=== PATIENT | female | born 1985 | race American Indian/Alaskan Native ===

== ENCOUNTER 2017-05-27 22:28 | Emergency (ER) | payer OTHER ==
[2017-05-27 23:26] VITALS: BP 135/99
--- NOTE | 2017-05-28 03:35 | Emergency Department Report ---
ED Back Pain/Injury HPI - General Chief Complaint: Back Pain/Injury Stated Complaint: BACK PAIN Time Seen by Provider: 05/28/17 02:19 Source: patient Mode of arrival: Ambulatory Limitations: No Limitations - History of Present Illness Initial Comments: This is a 32 y.o. female presents with chronic back pain. Patient states she is out of percocet pain medication. She moved here from [place] and doesn't have an I.D. to see pain management. Reports taking percocet 10 mg to control back pain from cyst. States she has been out of medication since the . Complaint: back pain -: year(s) Similar Symptoms Previously: Yes (chronic back pain) Place: home Radiation: none Severity: moderate Severity scale (0 -10): 7 Quality: sharp, aching Consistency: intermittent Improves With: medication (muscle relaxers and percocet) Worsens With: movement Context: unknown Associated Symptoms: denies other symptoms - Related Data Previous Rx's Medication Instructions Recorded Last Taken Type traMADol [Ultram 50 MG tab] 50 mg PO Q6HR PRN #10 tablet 05/28/17 Unknown Rx Allergies Allergy/AdvReac Type Severity Reaction Status Date / Time No Known Allergies Allergy Unverified 05/28/17 03:36 ED Review of Systems ROS: Stated complaint: BACK PAIN Other details as noted in HPI Constitutional: denies: chills, fever Respiratory: denies: cough, shortness of breath, wheezing Cardiovascular: denies: chest pain, palpitations Gastrointestinal: denies: abdominal pain, nausea, diarrhea Musculoskeletal: back pain (low back pain) Neurological: denies: headache, weakness, paresthesias ED Past Medical Hx - Past Medical History spinal cyst ED Back Pain Physical Exam - Exam General: Vital signs noted. No distress. Alert and acting appropriately. Back/Abdomen: Yes Perilumbar Tenderness (bilateral tenderness on palpation, no swelling, or erythma), No Abdominal Tenderness, No Perithoracic Tenderness, No Sacroiliac Tenderness, No Flank Tenderness, No Straight Leg Raise Pain Neuro: Yes Normal Sensation, Yes Normal DTR's, Yes Normal Gait, No Motor Weakness ED Course Vital Signs 05/27/17 23:21 Temperature 97.7 F Pulse Rate 98 H Respiratory 17 Rate Blood Pressure 135/99 O2 Sat by Pulse 100 Oximetry ED Medical Decision Making - Medical Decision Making This is a 32 y.o. female presents with chronic low back pain. Recently moved here from [place]. States she doesn't have I.D. and primary care will not see her to refer to pain management doctor. States need refill on percocet 10 mg, which is what she was taking in [place] to control pain. Given [place] 5/325 mg po once in ER. Referral to [facility] to get established and referral to pain management. Discharged home with tramadol 50 mg po Q6H, #10. Critical care attestation.: If time is entered above; I have spent that time in minutes in the direct care of this critically ill patient, excluding procedure time. ED Disposition Clinical Impression: Chronic low back pain Qualifiers: Back pain laterality: bilateral Sciatica presence: without sciatica Qualified Code(s): M54.5 - Low back pain; G89.29 - Other chronic pain; G89.29 - Other chronic pain Disposition: TO HOME OR SELFCARE Is pt being admited?: No Does the pt Need Aspirin: No Condition: Stable Instructions: Arthralgia (ED), Chronic Back Pain (ED) Additional Instructions: Follow up with [facility] for pain management. Prescriptions: traMADol [Ultram 50 MG tab] 50 mg PO Q6HR PRN #10 tablet PRN Reason: Pain Referrals: [facility] [Outside] - 3-5 Days [facility] [Outside] - 3-5 Days [facility] [Outside] - 3-5 Days Time of Disposition: 04:36 Print Language: YI
[2017-05-28] MEDS ORDERED: NORCO 5/325 PO ONE (03:36)
== END 2017-05-28 04:48 | disposition home or self-care (01) ==
LOC: ED 22:28
DX: M54.5 Low back pain (principal); G89.29 Other chronic pain
CPT/HCPCS: 99282

== ENCOUNTER 2017-09-01 20:07 | Emergency (ER) | payer OTHER ==
[2017-09-01] MEDS ORDERED: ASPIRIN PO ONE (20:52)
== END 2017-09-01 21:52 | disposition left against medical advice (07) ==
LOC: ED 20:07
DX: R07.9 Chest pain, unspecified (principal); Z53.21 Procedure and treatment not carried out due to patient leaving prior to being seen by health care provider
CPT/HCPCS: 93005; 93010

== ENCOUNTER 2017-12-20 00:08 | Emergency (ER) | payer OTHER ==
--- NOTE | 2017-12-20 01:25 | XRay Report ---
FINAL REPORT EXAM: XR HIPS BILAT 2V W/PELVIS HISTORY: B/L hip pain TECHNIQUE: An AP view of the pelvis was obtained along with bilateral frogleg views of both hip joints. FINDINGS: Both hip joints appear normal. The bony pelvic ring appears intact. The SI joints appear normal. The soft tissues are unremarkable. IMPRESSION: Within normal limits.
[2017-12-20 02:17] LABS: Bacteria,Urine 1+ /HPF (Negative)
[2017-12-20 02:26] LABS: Bilirubin,Urine NEG (Negative); Blood,Urine NEG (Negative); Color,Urine Yellow (Yellow); Mucus,Urine FEW /HPF; Urobilinogen,Urine < 2.0 mg/dL (<2.0)
[2017-12-20] MEDS ORDERED: TYLENOL #3 PO ONE (08:08)
--- NOTE | 2017-12-20 08:14 | Emergency Department Report ---
ED Back Pain/Injury HPI - General Chief Complaint: Back Pain/Injury Stated Complaint: MID AND UPPER BACK PAIN SIDE AND CHEST ACHING Time Seen by Provider: 12/20/17 08:06 Source: patient Limitations: No Limitations - History of Present Illness Initial Comments: This is a 32-year-old female nontoxic, well nourished in appearance, no acute signs of distress presents to the ED with c/o of acute on chronic lower/mid back pain. Patient stated that the past 2 days he was moving and developed this pain. Patient states has history of sciatica nerve pain which is similar symptoms as today. Patient states that pain radiates through to his right lower extremity. Patient stated she believes her hip is dislocated which also causes the pain. Patient stated that she was diagnosed with a spinal cyst in her thoracic area wished a neurologist stated that it is compressing onto her nerves which causes chronic back pain. Patient stated she also sees a pain management doctor which received Morphine and Percocets for pain. Patient denies any trauma. Denies any bladder or bowel instability. Patient denies any urinary symptoms. Denies any fever, chills, nausea, vomiting, headache, stiff neck, chest pain or shortness of breath. Patient denies any numbness or tingling. Denies any allergies. PMH includes spinal cyst and fibromyalgia and HTN. Patient stated she takes clonidine 0.1 mg daily but has been out of her medications. I will refill patients medication at discharge and give dose in the ED. MD Complaint: back pain -: days(s) (2) Similar Symptoms Previously: Yes Place: home Radiation: right leg Severity scale (0 -10): 8 Quality: aching Consistency: constant Improves With: immobilization, supine, sitting upright Worsens With: movement, walking Context: while lifting, turning/twisting Associated Symptoms: denies other symptoms. denies: confusion, weakness, chest pain, numbness, difficulty walking, cough, difficulty urinating, diaphoresis, incontinence, fever/chills, constipation, headaches, abdominal pain, loss of appetite, malaise, nausea/vomiting, rash, seizure, shortness of breath, syncope - Related Data Previous Rx's Medication Instructions Recorded Last Taken Type traMADol [Ultram 50 MG tab] 50 mg PO Q6HR PRN #10 tablet 05/28/17 Unknown Rx Acetaminophen 500 mg PO Q6H PRN #30 tablet 12/20/17 Unknown Rx Cyclobenzaprine [Flexeril] 10 mg PO TID PRN #14 tablet 12/20/17 Unknown Rx cloNIDine [Catapres] 0.1 mg PO QHS #30 tablet 12/20/17 Unknown Rx traMADol [Ultram] 50 mg PO Q6HR PRN #12 tablet 12/20/17 Unknown Rx Allergies Allergy/AdvReac Type Severity Reaction Status Date / Time No Known Allergies Allergy Verified 09/01/17 22:55 ED Review of Systems ROS: Stated complaint: MID AND UPPER BACK PAIN SIDE AND CHEST ACHING Other details as noted in HPI Constitutional: denies: chills, fever Eyes: denies: eye pain, eye discharge, vision change ENT: denies: ear pain, throat pain Respiratory: denies: cough, shortness of breath, wheezing Cardiovascular: denies: chest pain, palpitations Endocrine: no symptoms reported Gastrointestinal: denies: abdominal pain, nausea, diarrhea Genitourinary: denies: urgency, dysuria, discharge Musculoskeletal: back pain. denies: joint swelling, arthralgia Skin: denies: rash, lesions Neurological: denies: headache, weakness, paresthesias Psychiatric: denies: anxiety, depression Hematological/Lymphatic: denies: easy bleeding, easy bruising ED Past Medical Hx - Past Medical History Previous Medical History?: Yes Hx Hypertension: Yes Hx Psychiatric Treatment: Yes (anxiety) Additional medical history: spinal cyst, fibromyagia - Surgical History Past Surgical History?: No - Social History Smoking Status: Current Every Day Smoker Substance Use Type: Alcohol, Marijuana - Medications Home Medications: Home Medications Medication Instructions Recorded Confirmed Last Taken Type traMADol [Ultram 50 MG tab] 50 mg PO Q6HR PRN #10 tablet 05/28/17 Unknown Rx Acetaminophen 500 mg PO Q6H PRN #30 tablet 12/20/17 Unknown Rx Cyclobenzaprine [Flexeril] 10 mg PO TID PRN #14 tablet 12/20/17 Unknown Rx cloNIDine [Catapres] 0.1 mg PO QHS #30 tablet 12/20/17 Unknown Rx traMADol [Ultram] 50 mg PO Q6HR PRN #12 tablet 12/20/17 Unknown Rx ED Physical Exam - General Limitations: No Limitations General appearance: alert, in no apparent distress - Head Head exam: Present: atraumatic, normocephalic - Eye Eye exam: Present: normal appearance Pupils: Present: normal accommodation - ENT ENT exam: Present: normal exam, mucous membranes moist - Neck Neck exam: Present: normal inspection, full ROM. Absent: tenderness, meningismus, lymphadenopathy - Respiratory Respiratory exam: Present: normal lung sounds bilaterally. Absent: respiratory distress, wheezes, rales, rhonchi, stridor, chest wall tenderness, accessory muscle use, decreased breath sounds, prolonged expiratory - Cardiovascular Cardiovascular Exam: Present: regular rate, normal rhythm, normal heart sounds. Absent: irregular rhythm, systolic murmur, diastolic murmur, rubs, gallop - GI/Abdominal GI/Abdominal exam: Present: soft, normal bowel sounds. Absent: distended, tenderness, guarding, rebound, rigid, diminished bowel sounds - Rectal Rectal exam: Present: deferred - Extremities Exam Extremities exam: Present: normal inspection, full ROM, normal capillary refill. Absent: tenderness, joint swelling - Expanded Lower Extremity Exam Right Hip exam: Present: normal inspection, full ROM, external rotation, internal rotation, pelvic stability. Absent: tenderness, swelling, abrasion, laceration , ecchymosis, deformity, crepidus, dislocation, erythema, shortening Upper Leg exam: Present: normal inspection, full ROM. Absent: tenderness, swelling Knee exam: Present: normal inspection, full ROM. Absent: tenderness, swelling Lower Leg exam: Present: normal inspection, full ROM. Absent: tenderness, swelling Ankle exam: Present: normal inspection, full ROM. Absent: tenderness, swelling Foot/Toe exam: Present: normal inspection, full ROM. Absent: tenderness, swelling Neuro vascular tendon exam: Present: no vascular compromise. Absent: pulse deficit, abnormal cap refill, motor deficit, sensory deficit, tendon deficit, extremity cold to touch, pallor, abnormal 2-point discrimination, decreased fine /light touch, foot drop, peroneal nerve deficit, significant pain with passive ROM of distal joint Gait: Positive: observed and normal - Back Exam Back exam: Present: normal inspection, full ROM, paraspinal tenderness ( throacic and lumbar paraspinal), other (cyst in the mid-throacic region present. No induraction or flutance noted. No cellulitits or abscess formation.) . Absent: tenderness, CVA tenderness (R), CVA tenderness (L), muscle spasm, vertebral tenderness, rash noted - Expanded Back Exam Expanded Back exam: Absent: saddle anesthesia Back exam: Negative Straight Leg Raising: Left, Right - Neurological Exam Neurological exam: Present: alert, oriented X3, normal gait - Psychiatric Psychiatric exam: Present: normal affect, normal mood - Skin Skin exam: Present: warm, dry, intact, normal color. Absent: rash ED Course Vital Signs 12/20/17 12/20/17 12/20/17 00:52 05:35 08:41 Temperature 99 F 98.2 F Pulse Rate 106 H 87 79 Respiratory 20 16 Rate Blood Pressure 183/100 179/111 226/135 Blood Pressure [Left] O2 Sat by Pulse 98 98 Oximetry 12/20/17 09:50 Temperature Pulse Rate 74 Respiratory Rate Blood Pressure Blood Pressure 197/123 [Left] O2 Sat by Pulse Oximetry - Reevaluation(s) Reevaluation #1: 12/20/17 08:13 Patient is speaking in full sentences with no signs of distress noted. Reevaluation #2: 12/20/17 08:31 Prior to discharge, patient is demanding for "narcotics". Patient was instructed and educated that Flexeril is a muscle relaxant and from the history she gave will benefit the patient. Giving Flexeril and "narcotics" causes severe BALLISTICIAN depression, and due to this I gave patient Tylenol at discharge. Patient stated she does have a pain specialist that she follows for chronic back pain. Patient then stated she is having chest pains. Upon exam, I clearly asked patient if she was having any chest pain or shortness of breathe and patient stated "no". I will start a chest pain work up now. - Consultations Consultation #1: 12/20/17 09:17 Patient has been consulted with Branden Barbosa about patient history, physical exam, and labs/EKG/Xray and examined and screened patient and agrees to ED plan of care. ED Medical Decision Making - Lab Data Result diagrams: 12/20/17 09:15 12/20/17 09:15 - Medical Decision Making This is a 32-year-old female that presents with low back strain and chest pain. Patient is stable was examined by me and Dr. Roblero. JUANCARLOS and HEART score 0 pints. Wells criteria for DVT/SVT/PE 0 points. There is no spinal tenderness. There is no cauda equina syndrome during examination. No bladder or bowel instability. Xray chest/hip within normal limits and dictated by the radiologist. Negative troponin. CBC/BMP within normal limits. Pt is notified of the report. UA within normal limits. Patient received Tylenol with Codeine in the ED which preceded his symptoms has resolved and subsided. Patient stated that her friend will drive patient home after discharge. Patient states she does not take any NSAIDs due to stomach ulcers. Patient is discharged with muscle relaxant and Tylenol. Patient also is discharged with Ultram, as per Dr. Roblero. Patient was instructed not to operate any machinery while taking muscle relaxant as they cause her drowsiness. Patient was referred to Follow-up with a primary care doctor in 3-5 days or if symptoms worsen and continue return to emergency room as soon as possible. At time of discharge, the patient does not seem toxic or ill in appearance. No acute signs of distress noted. Patient agrees to discharge treatment plan of care. No further questions noted by the patient. This chart is dictated with using [employer] Critical care attestation.: If time is entered above; I have spent that time in minutes in the direct care of this critically ill patient, excluding procedure time. ED Disposition Clinical Impression: Sciatic leg pain Low back strain Qualifiers: Encounter type: initial encounter Qualified Code(s): S39.012A - Strain of muscle, fascia and tendon of lower back, initial encounter Chest pain Qualifiers: Chest pain type: unspecified Qualified Code(s): R07.9 - Chest pain, unspecified Disposition: DC-01 TO HOME OR SELFCARE Is pt being admited?: No Does the pt Need Aspirin: No Condition: Stable Instructions: Cyclobenzaprine (By mouth), Chest Pain (ED), Sciatica (ED), Low Back Strain (ED) Additional Instructions: Follow-up with your primary care doctor in 3-5 days or if symptoms worsen such as bladder or bowel stability, chest pain, short of breath, numbness or tingling sensation in extremities, headache, dizziness, visual changes, nausea vomiting, or abdominal pain, return back to emergency room as was possible. Take Tylenol and Flexeril as prescribed. Do not operate heavy machinery while taking Flexeril due to sedation Prescriptions: cloNIDine [Catapres] 0.1 mg PO QHS #30 tablet Acetaminophen 500 mg PO Q6H PRN #30 tablet PRN Reason: Pain, Moderate (4-6) Cyclobenzaprine [Flexeril] 10 mg PO TID PRN #14 tablet PRN Reason: Muscle Spasm traMADol [Ultram] 50 mg PO Q6HR PRN #12 tablet PRN Reason: Pain Referrals: PRIMARY CARE, [Primary Care Provider] - 3-5 Days NOLBERTO SHAHID MD [Staff Physician] - 3-5 Days [facility] [Outside] - 3-5 Days [facility] [Outside] - 3-5 Days Forms: Work/School Release Form(ED)
[2017-12-20] MEDS ORDERED: CATAPRES PO ONE (08:35)
--- NOTE | 2017-12-20 08:56 | XRay Report ---
CHEST 2 VIEWS INDICATION: Chest pain. COMPARISON: None similar. FINDINGS: PA and lateral chest radiographs demonstrate bilateral mid to lower lung zone linear densities, possibly scarring or atelectasis. Right hemidiaphragm approximately 3 cm higher than the left. Borderline cardiomegaly. No pleural effusions or CHF. Intact bones. CONCLUSION: Mild bibasilar scarring and borderline cardiomegaly, as described. Please also correlate clinically and with prior relevant imaging, if available. Thank you for the opportunity to participate in this patient's care.
[2017-12-20 09:26] LABS: Basophils # (Auto) 0.1 K/mm3 (0.0-0.1); Eosinophils # (Auto) 0.5 K/mm3 (0.0-0.4); Eosinophils % (Auto) 3.4 % (0.0-4.3); Monocytes # (Auto) 0.8 K/mm3 (0.0-0.8); Monocytes % (Auto) 5.7 % (0.0-7.3)
[2017-12-20 09:33] LABS: BUN/Creatinine Ratio 20; Blood Urea Nitrogen 14 mg/dL (7-17); Calcium 9.4 mg/dL (8.4-10.2); Hemolysis Index 8
[2017-12-20 09:36] LABS: Red Blood Count 5.25 M/mm3 (3.65-5.03)
[2017-12-20 09:37] LABS: Basophils % (Auto) 0.9 % (0.0-1.8); Hematocrit 40.7 % (30.3-42.9); Hemoglobin 13.4 gm/dl (10.1-14.3); Lymphocytes # (Auto) 3.8 K/mm3 (1.2-5.4); Lymphocytes % (Auto) 26.2 % (13.4-35.0); Mean Corpuscular HGB Conc 33 % (30-34); Mean Corpuscular Hemoglobin 26 pg (28-32); Mean Corpuscular Volume 78 fl (79-97); Platelet Count 350 K/mm3 (140-440); Red Cell Distribution Width 14.7 % (13.2-15.2)
[2017-12-20 10:15] VITALS: BP 195/104
== END 2017-12-20 10:19 | disposition home or self-care (01) ==
LOC: ED 00:08
DX: S39.012A Strain of muscle, fascia and tendon of lower back, initial encounter (principal); M54.32 Sciatica, left side; M54.31 Sciatica, right side; R07.89 Other chest pain; I10 Essential (primary) hypertension; F41.9 Anxiety disorder, unspecified; M79.7 Fibromyalgia; F17.200 Nicotine dependence, unspecified, uncomplicated; F12.10 Cannabis abuse, uncomplicated; X58.XXXA Exposure to other specified factors, initial encounter; Y93.89 Activity, other specified; Y92.009 Unspecified place in unspecified non-institutional (private) residence as the place of occurrence of the external cause; Y99.8 Other external cause status
CPT/HCPCS: 36415; 71046; 73521; 80048; 81001; 84484; 84703; 85025; 93005; 93010; 99284

== ENCOUNTER 2018-05-05 11:02 | Emergency (ER) | payer OTHER ==
[2018-05-05 11:42] VITALS: BP 152/99
== END 2018-05-05 13:25 | disposition left against medical advice (07) ==
LOC: ED 11:02
DX: M54.89 Other dorsalgia (principal); Z53.21 Procedure and treatment not carried out due to patient leaving prior to being seen by health care provider

== ENCOUNTER 2018-05-05 14:12 | Emergency (ER) | payer OTHER ==
[2018-05-05 14:20] VITALS: BP 150/88
== END 2018-05-05 16:47 | disposition left against medical advice (07) ==
LOC: ED 14:12
DX: M54.89 Other dorsalgia (principal); Z53.21 Procedure and treatment not carried out due to patient leaving prior to being seen by health care provider